=== PATIENT | male | born 1960 | race African-American/Black ===

== ENCOUNTER 2018-01-18 08:15 | Observation (INO) | payer BC, OTHER ==
[2018-01-18 08:34] LABS: Hemoglobin 14.2 g/dL (14.0-18.0); Mean Corpuscular HGB CONC 32.8 g/dL (32.0-36.0); Mean Corpuscular Hemoglobin 26.9 pg (27.0-31.0); Mean Corpuscular Volume 82.1 fl (80.0-94.0); Mean Platelet Volume 8.5 fL (7.4-10.4); Platelet Count 219 thou/uL (130-400); RBC Distribution Width 12.9 % (11.5-14.5); Red Blood Cell (RBC) Count 5.28 mill/uL (4.70-6.10); White Blood Cell (WBC) Count 8.4 thou/uL (4.8-10.8)
[2018-01-18 08:50] LABS: ALT (SGPT) 26 U/L (8-55); AST (SGOT) 18 U/L (5-34); Albumin 4.3 g/dL (3.5-5.0); Alkaline Phosphatase 59 U/L (40-150); Anion Gap 16 mmol/L (10-20); BUN (Urea Nitrogen) 16 mg/dL (8.4-25.7); Bilirubin, Total 0.6 mg/dL (0.2-1.2); Calc. Creatinine Clearance 0 mL/min (70-130); Calcium 9.6 mg/dL (7.8-10.44); Carbon Dioxide 23 mmol/L (22-29); Chloride 103 mmol/L (98-107); Estimated GFR-MDRD 76; Globulin 2.7 g/dL (2.4-3.5); Glucose 154 mg/dL (70-105); Potassium 3.5 mmol/L (3.5-5.1); Sodium 138 mmol/L (136-145)
[2018-01-18 08:57] LABS: Band 1 % (5-11); Lymphocytes 57 % (21-51); MDiff Complete? YES; Monocytes 7 % (0-10); Neutrophil 35 % (42-75); RBC Morphology Normal
[2018-01-18] MEDS ORDERED: Dextrose 5% in Water 1,000 ML IV PRN (09:27)
[2018-01-18] MEDS ORDERED: Dextrose 50% Abboject 50 ML SYRINGE SLOW IVP PRN (09:27)
[2018-01-18] MEDS ORDERED: Lidocaine 1% PF 5 ML VIAL ONE (09:32)
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
--- NOTE | 2018-01-18 13:04 | OP-2 ---
DATE OF PROCEDURE: 01/18/2018 ATTENDING PHYSICIAN: Dr. Fausto Lopez PREOPERATIVE DIAGNOSIS: 2 centimeter posterior scalp laceration. POSTOPERATIVE DIAGNOSIS: 2 centimeter posterior scalp laceration. PROCEDURE: Laceration repaired with dm. PROCEDURE IN DETAIL: A timeout was performed prior to the procedure. The wound was prepped in usual sterile fashion with Betadine. Anesthesia was achieved with 3 mL of 1% lidocaine. There were no fo reign bodies in the laceration. The wound were reapproximated and 3 dm were placed. There was excellent reapproximation of the wound edges. The patient tolerated the procedure well without compl ication. Dr. Lopez was present throughout the entire procedure.
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
[2018-01-18 14:49] VITALS: BMI 28.3
[2018-01-18] MEDS: Acetaminophen 500 MG TAB PO PRN (22:20)
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
--- NOTE | 2018-01-19 07:47 | CT ---
PRELIMINARY REPORT/[facility]/EMERGENTY AFTER-HOURS PROCEDURE CT Head Without Intravenous Contrast CLINICAL HISTORY: 57 years old, male; Condition or disease; Other: F/u hemorrhage TECHNIQUE: Axial computed tomography images of the head/brain without intravenous contrast. COMPARISON: CT Brain WO Con 2018-01-18 08:28 FINDINGS: Prior exam images suggested a very small amount of subarachnoid blood in the right parietal region. On the current images, the area is essentially resolved, so it probably represented subtle hemorrhage which is no longer visible, versus artifact. No definite new hemorrhage in the interval. No mass effect or midline shift. Ventricle size is normal for age. No definite acute infarct by CT. No definite acute skull fracture. Included paranasal sinuses are essentially clear. IMPRESSION: Prior images suggested a very small amount of subarachnoid blood in the right parietal region. On the current images, the area is essentially resolved, so it probably represented subtle hemorrhage which is no longer visible, versus artifact. No definite new hemorrhage. No mass effect or midline shift. Thank you for allowing us to participate in the care of your patient. Dictated and Authenticated by: Diogenes Vazquez MD 01/19/2018 6:21 AM Central Time ([place] & [place]) FINAL REPORT HEAD CT WITHOUT CONTRAST: DATE: 01/19/18. COMPARISON: 01/18/18. HISTORY: Reevaluate intracranial hemorrhage. FINDINGS: I agree with the preliminary [facility] report. The imaged paranasal sinuses and mastoid air cells are we ll aerated. There is no displaced calvarial fracture. There is subtle small volume extraaxial hemorrhage anterior to the inferior aspect of the right front al lobe within the frontal lobe within the anterior cranial fossa. No new hemorrhage seen. No midli ne shift, mass effect, or ventricular enlargement. IMPRESSION: Minimal residual extraaxial hemorrhage in the anterior cranial fossa on the right. No new hemorrhage , midline shift, or mass effect seen. POS: [facility]
[2018-01-19] MEDS ORDERED: Folic Acid 1 MG TAB PO SCH (09:00)
[2018-01-19] MEDS ORDERED: Adacel (T-DAP) 0.5 ML VIAL IM ONE (10:15)
[2018-01-19] MEDS: Acetaminophen 500 MG TAB PO PRN (11:34)
[2018-01-19 11:47] VITALS: BP 128/68; TEMP 98.3
== END 2018-01-19 15:04 | disposition home or self-care (01) ==
LOC: ERS 08:15 → SURG A 09:33
PROVIDERS: ADMIT Surgery; ATTEND Surgery
PROC: 0HQ0XZZ Repair Scalp Skin, External Approach (ICD-10-PCS; principal; 2018-01-19)
DX: S01.01XA Laceration without foreign body of scalp, initial encounter (principal); S06.5X9A Traumatic subdural hemorrhage with loss of consciousness of unspecified duration, initial encounter; S00.83XA Contusion of other part of head, initial encounter; W22.8XXA Striking against or struck by other objects, initial encounter
CPT/HCPCS: 70450; 72125; 80053; 85025; 90715; G0378; G0390; G8978-GP-CH; G8979-GP-CH; G8980-GP-CH; G8987-GO-CI; G8988-GO-CI; G8989-GO-CI; J2001

== ENCOUNTER 2018-02-15 13:59 | Outpatient (CLI) | payer OTHER ==
--- NOTE | 2018-02-15 14:42 | CT ---
CT BRAIN: History: Pipe fell on patient's head January. Continued dizziness. Technique: Noncontrast enhanced CT images of the brain obtained. Comparison: 01-19-18 FINDINGS: Images demonstrate previously noted small area of subarachnoid hemorrhage in the right moe etal area to have completely resolved. No evidence of acute intracranial masses, hemorrhages, or stro kes seen. CT appearance is unremarkable. No evidence of calvarial fractures seen. IMPRESSION: Normal CT brain. POS: [facility]
== END 2018-02-15 14:00 | disposition home or self-care (01) ==
LOC: TBSIIMAG 13:59
PROVIDERS: ATTEND Neurological Surgery
DX: S09.90XA Unspecified injury of head, initial encounter (principal)
CPT/HCPCS: 70450